=== PATIENT | female | born 1985 | race Caucasian/White ===

== ENCOUNTER 2018-04-14 18:12 | Emergency (ER) | payer MEDICARE ==
--- NOTE | 2018-04-14 19:43 | ER Document Report ---
HPI - HPI Patient complains to provider of: sunblisters, left wrist pain Onset: Other Pain Level: 5 Context: Patient presents to the emergency department with complaints of left wrist pain since Thursday. Patient reports she hit her wrist on the bottom of her bed. Patient also complains of sun blister for last couple weeks. Denies new medications She reports she works outside frequent exposure to sun. Reports t is hard for her not to be in sun. She reports she has applied Benadryl cream and nothing is helping the area. Patient has low-grade fever of 100.8. Denies vomiting diarrhea. Associated Symptoms: Fever Exacerbated by: Movement Relieved by: Denies Similar symptoms previously: No Recently seen / treated by doctor: No - MUSCULOSKELETAL Musculoskeletal: REPORTS: Extremity pain Past Medical History - General Information source: Patient Last Menstrual Period: Current - Social History Smoking Status: Current Every Day Smoker Cigarette use (# per day): Yes Frequency of alcohol use: None Drug Abuse: None Family History: None Patient has suicidal ideation: No Patient has homicidal ideation: No - Medical History Medical History: Negative Renal/ Medical History: Denies: Hx Peritoneal Dialysis Malignancy Medical History: Reports: Other - 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 IN LAST 30 DAYS: No - HEENT HEENT: Atraumatic, Normocephalic - NECK Neck: Normal Inspection, Supple - RESPIRATORY Respiratory: No Respiratory Distress - CARDIOVASCULAR Cardiovascular: Regular Rate - MUSCULOSKELETAL/EXTREMETIES Musculoskeletal/Extremeties: MAEW, FROM, Tender - left wrist ttp, no obvious deformity, no swelling ,good radial pulse, good cap refill - NEURO Level of Consciousness: Awake, Alert, Appropriate Motor/Sensory: No Motor Deficit - DERM Integumentary: Warm, Dry, Rash - papulovesicular eruption on the left arm, scattered area across chest, no warmth, no pustules, no drainage Adult Front & Back Diagram: 1 - papulovesicular eruption 2 - papulovesicular eruption Course - Re-evaluation Re-evalutation: 04/14/18 Patient was instructed on the importance of staying out of the sun. Patient was instructed to apply sunblock wear long sleeves. She was instructed on triamcinolone. She was instructed on negative x-ray Tejas wrap. She verbalized understanding to all instructions. - Vital Signs Vital signs: Temp Pulse Resp BP Pulse Ox 100.8 F H 97 18 143/95 H 98 04/14/18 18:36 04/14/18 18:36 04/14/18 18:36 04/14/18 18:36 04/14/18 18:36 - Diagnostic Test Radiology reviewed: Image reviewed, Reports reviewed - Diagnostic report text EXAM DESCRIPTION: WRIST LEFT 3 VIEWS COMPLETED DATE/TIME: 2017 7:44 pm REASON FOR STUDY: pain, hit on bed COMPARISON: None. EXAM PARAMETERS: NUMBER OF VIEWS: Three views. TECHNIQUE: AP, lateral and oblique radiographic images acquired of the left wrist LIMITATIONS: None. FINDINGS: MINERALIZATION: Normal. BONES: No acute fracture or dislocation. No worrisome bone lesions. JOINTS: No effusion. SOFT TISSUES: No significant soft tissue swelling. No radiopaque foreign body. OTHER: No other significant finding. IMPRESSION: NO FRACTURE. Discharge - Discharge Clinical Impression: Left wrist pain, Polymorphous light eruption Condition: Stable Disposition: HOME, SELF-CARE Instructions: Tejas Wrap ([facility]), Use of [id number] Ibuprofen ([facility]), Ice & Elevation ([facility]), Topical Steroid Cream or Ointment ([facility]) Additional Instructions: *You have been evaluated for wrist pain and sun poisoning *Avoid the sun, wear sunblock or long sleeves. apply steroid cream *Rest/Ice/Elevate your wrist *wear tejas wrap for comfort *Follow up with orthopedics for recheck within one week-call for an appointment *Take ibuprofen as indicated for pain *Return to ED for worsening condition, changes, needs Monitor your blood pressure. Your blood pressure was elevated today. This may be because you were anxious, in pain or because you need medication. It is important to follow up with your primary care provider for full evaluation. Prescriptions: Triamcinolone Acetonide [Aristocort 0.1% Cream] 1 applic TP BID #1 tub Forms: Elevated Blood Pressure
--- NOTE | 2018-04-14 20:09 | RADIOLOGY REPORT (SQ) ---
EXAM DESCRIPTION: WRIST LEFT 3 VIEWS COMPLETED DATE/TIME: 04/14/2018 7:44 pm REASON FOR STUDY: pain, hit on bed COMPARISON: None. EXAM PARAMETERS: NUMBER OF VIEWS: Three views. TECHNIQUE: AP, lateral and oblique radiographic images acquired of the left wrist LIMITATIONS: None. FINDINGS: MINERALIZATION: Normal. BONES: No acute fracture or dislocation. No worrisome bone lesions. JOINTS: No effusion. SOFT TISSUES: No significant soft tissue swelling. No radiopaque foreign body. OTHER: No other significant finding. IMPRESSION: NO FRACTURE. TECHNICAL DOCUMENTATION: JOB ID: [id number] [id number] 2010 [employer]- All Rights Reserved Reading location - IP/workstation name: [email or web address]
[2018-04-14 20:27] VITALS: BP 137/81
== END 2018-04-14 20:25 | disposition home or self-care (01) ==
LOC: ER 18:12
DX: M25.532 Pain in left wrist (principal); R23.8 Other skin changes; F17.210 Nicotine dependence, cigarettes, uncomplicated
CPT/HCPCS: 99283